=== PATIENT | male | born 2000 | race Hispanic/Latino ===

== ENCOUNTER 2025-01-09 13:55 | Emergency (ER) | payer OTHER ==
[~2025-01-09] VITALS: Ht 188 cm; Wt 92.7 kg
[2025-01-09 14:53] LABS: PLATELET COUNT, AUTOMATED 263 10^3/uL (150-450)
[2025-01-09 15:17] LABS: CALCIUM LEVEL 9.0 MG/DL (8.5-10.1); CARBON DIOXIDE LEVEL 28 MMOL/L (20-31); CHLORIDE LEVEL 104 MMOL/L (98-107); CREATININE FOR GFR 0.94 MG/DL (0.70-1.30); GLOMERULAR FILTRATION RATE > 90.0 (>60); POTASSIUM SERUM 4.1 MMOL/L (3.5-5.1); SODIUM LEVEL 140 MMOL/L (136-145)
[2025-01-09 15:54] VITALS: BP 122/64
[2025-01-09 16:09] VITALS: TEMP 98.6; O2SAT 98
== END 2025-01-09 16:29 | disposition home or self-care (01) ==
LOC: M ED 13:55 → EDBD 13:55 → M ED 16:29
DX: T53.91XA Toxic effect of unspecified halogen derivatives of aliphatic and aromatic hydrocarbons, accidental (unintentional), initial encounter (principal); R10.9 Unspecified abdominal pain; R07.9 Chest pain, unspecified